=== PATIENT | male | born 1970 | race Caucasian/White ===

== ENCOUNTER 2018-07-17 23:48 | Emergency (ER) | payer BC ==
[~2018-07-17] VITALS: Ht 190.5 cm; Wt 80.0 kg
[2018-07-18] VITALS: BP 130/70; PULSE 89; RESP 20; Ht 190.5 cm; Wt 80.0 kg
--- NOTE | 2018-07-18 00:36 | ERD ---
ER Documentation Chief Complaint Chief Complaint Cough HPI Is a very pleasant 48-year-old male complains of sinus pressure and pain over the past week with associated cough. Patient has history of multiple sinus infections. Denies fevers chills nausea vomiting. Denies any other current complaints. ROS All systems reviewed and are negative except as per history of present illness. Physical Exam Vitals Temp 98.6, pulse 77, blood pressure 110/77, temp 98.6, respiratory rate 18, pulse ox 98% on room air Physical Exam Const: No acute distress Head: Atraumatic Eyes: Normal Conjunctiva ENT: Normal External Ears, Nose and Mouth. Neck: Full range of motion. No meningismus. Resp: Clear to auscultation bilaterally Cardio: Regular rate and rhythm, no murmurs Abd: Soft, non tender, non distended. Normal bowel sounds Skin: No petechiae or rashes Back: No midline or flank tenderness Ext: No cyanosis, or edema Neur: Awake and alert Psych: Normal Mood and Affect Procedures/MDM Medical decision makin-year-old male with acute sinusitis. Will discharge home with [facility]. Follow-up with PCP. Return for worsening symptoms Departure Diagnosis: Primary Impression: Sinusitis Sinusitis location: unspecified location Chronicity: unspecified Qualified Codes: J32.9 - Chronic sinusitis, unspecified Condition: Stable Patient Instructions: Evangelista Sanchez DANIEL S. July 18, 2018 00:36
== END 2018-07-18 00:34 | disposition home or self-care (01) ==
LOC: E/R 23:48
DX: J32.9 Chronic sinusitis, unspecified (principal)
CPT/HCPCS: 99282